=== PATIENT | male | born 1955 | race Caucasian/White ===

== ENCOUNTER 2021-02-09 08:05 | Day surgery (SDC) | payer BC ==
[~2021-02-09] VITALS: Ht 172.7 cm; Wt 94.6 kg
[~2021-02-09 08:05] MED LIST: ASPIRIN 81M81 MG/TA2 PO; CO Q-1010 M1 PO; FISH OIL 1000MG1 CAP PO; FLOMAX 0.40.4 MG/CAP PO; LOFIBRA160 MG PO; MULTIPLE VITAMI1 CAP PO; PROBIOTIC FORMU1 CAP PO; PROSCAR 5MG5 MG PO; ZOCOR 40MG40 MG PO
[2021-02-09 09:10] VITALS: BP 139/82; PULSE 65; TEMP 96.1
[2021-02-09] MEDS ORDERED: NORVASC 5MG5 MG/TAB PO (10:15)
[2021-02-09] MEDS ORDERED: ZIAC 10/6.25M1 UDTAB PO (10:16)
[2021-02-09] MEDS ORDERED: GLUCOPHAGE500 MG/TAB PO (10:16)
[2021-02-09] MEDS ORDERED: ALTACE 5MG5 MG PO (10:17)
[2021-02-09] MEDS ORDERED: CRESTOR40 MG PO (10:17)
[2021-02-09] MEDS ORDERED: THE MEDICINE S200 M2 PO (10:18)
[2021-02-09 10:45] VITALS: BP 105/51; PULSE 58; TEMP 97.2
[2021-02-09 11:00] VITALS: BP 101/83; PULSE 58
[2021-02-09 11:15] VITALS: BP 137/90; PULSE 59
--- NOTE | 2021-02-09 11:25 | NUR ---
1045 - Pt returned to [facility] via cart. Transfered to chair with RN assist. Post op vitals started. Alert and oriented. Juice and toast provided. at bedside. Warm blanket provided. 1100 - Vitals WNL. Tolerating food and drink well. Dr. Goodman in to [facility] with pt. 1115 - Reviewed discharge instrcution and education materials. Answered questions to pt and satisfaction. Removed IV without complication. Instructed pt to dress and open door when ready for discharge. 1125 - Transfered pt to personal viehicle to be driven home by .
== END 2021-02-09 11:25 | disposition home or self-care (01) ==
LOC: SDCO 08:05
DX: Z12.11 Encounter for screening for malignant neoplasm of colon (principal); D12.0 Benign neoplasm of cecum; D12.2 Benign neoplasm of ascending colon; D12.8 Benign neoplasm of rectum; K57.30 Diverticulosis of large intestine without perforation or abscess without bleeding; K64.0 First degree hemorrhoids; I10 Essential (primary) hypertension; N40.0 Benign prostatic hyperplasia without lower urinary tract symptoms; E11.9 Type 2 diabetes mellitus without complications; K21.9 Gastro-esophageal reflux disease without esophagitis; E78.00 Pure hypercholesterolemia, unspecified; Z79.899 Other long term (current) drug therapy; Z79.84 Long term (current) use of oral hypoglycemic drugs
CPT/HCPCS: J2704; J7030